=== PATIENT | female | born 2000 | race Caucasian/White ===

== ENCOUNTER 2020-11-08 16:37 | Emergency (ER) | payer MEDICAID, OTHER ==
[~2020-11-08] VITALS: Ht 157.5 cm; Wt 52.2 kg
[2020-11-08 16:43] VITALS: BP 123/78
== END 2020-11-08 17:42 | disposition left against medical advice (07) ==
LOC: ER 16:37
DX: R25.2 Cramp and spasm (principal); Z53.21 Procedure and treatment not carried out due to patient leaving prior to being seen by health care provider